=== PATIENT | female | born 1990 | race Caucasian/White ===

== ENCOUNTER → 2019-12-31 | Outpatient (CLI) | payer OTHER ==
--- NOTE | 2019-12-31 13:36 | RADIOLOGY REPORT (SQ) ---
EXAM DESCRIPTION: CHEST 2 VIEWS COMPLETED DATE/TIME: 12/31/2019 11:25 am REASON FOR STUDY: NONSPEC REACTION TO GAMMA INTRFRN RESPNS W/O ACTV TUBRCLOSIS COMPARISON: None. EXAM PARAMETERS: NUMBER OF VIEWS: two views TECHNIQUE: Digital Frontal and Lateral radiographic views of the chest acquired. RADIATION DOSE: NA LIMITATIONS: none FINDINGS: LUNGS AND PLEURA: No opacities, masses or pneumothorax. No pleural effusion. MEDIASTINUM AND HILAR STRUCTURES: No masses or contour abnormalities. HEART AND VASCULAR STRUCTURES: Heart normal size. No evidence for failure. BONES: No acute findings. HARDWARE: None in the chest. OTHER: No other significant finding. IMPRESSION: No acute finding in the chest. There is no evidence of active or prior tuberculosis. TECHNICAL DOCUMENTATION: JOB ID: [id number] 2010 [employer]- All Rights Reserved Reading location - IP/workstation name: [email or web address]
== END ==
LOC: RAD 11:03
PROVIDERS: ATTEND Family Medicine
DX: R76.11 Nonspecific reaction to tuberculin skin test without active tuberculosis (principal)
CPT/HCPCS: 71046

== ENCOUNTER 2020-08-10 17:56 | Emergency (ER) | payer SELFPAY ==
--- NOTE | 2020-08-10 18:50 | EKG REPORT ---
SEVERITY:- BORDERLINE ECG - SINUS RHYTHM PROBABLE LEFT ATRIAL ABNORMALITY : Confirmed by: Tank Bob MD 10-Aug-2020 18:49:45
--- NOTE | 2020-08-10 19:10 | ER Document Report ---
ED Medical Screen (RME) - General Chief Complaint: Chest Pain Stated Complaint: CHEST PAIN/DIZINESS Time Seen by Provider: 08/10/20 19:04 Mode of Arrival: Wheelchair Information source: Patient Notes: 30-year-old female presents to ED for chest pain that started on Monday with shortness of breath headache fatigue nausea and tinnitus. She states she did have a Covid test that was negative she got the results today. She states there is no change in smell or taste. She works at the [employer]. 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 She states she has 2 autoimmune disease factor Leiden syndrome and antiphospholipid syndrome. She states she does not smoke she occasionally drinks and does not use any illicit drugs. She is alert oriented respirations regular and unlabored speaking in full sentences. Her pulse is 93 O2 sat is 100%. Respirations are 22. I have greeted and performed a rapid initial assessment of this patient. A comprehensive ED assessment and evaluation of the patient, analysis of test results and completion of medical decision making process will be conducted by an additional ED providers. TRAVEL OUTSIDE OF THE [place] IN LAST 30 DAYS: No Physical Exam - Vital signs Vitals: Temp Pulse Resp BP Pulse Ox 98.1 F 103 H 22 H 136/87 H 100 08/10/20 18:07 08/10/20 18:07 08/10/20 18:07 08/10/20 18:07 08/10/20 18:07 Course - Vital Signs Vital signs: Temp Pulse Resp BP Pulse Ox 98.1 F 103 H 22 H 136/87 H 100 08/10/20 18:07 08/10/20 18:07 08/10/20 18:07 08/10/20 18:07 08/10/20 18:07
--- NOTE | 2020-08-10 19:30 | RADIOLOGY REPORT (SQ) ---
EXAM DESCRIPTION: CHEST 2 VIEWS IMAGES COMPLETED DATE/TIME: 08/10/2020 7:22 pm REASON FOR STUDY: Pain history of PE and DVTs COMPARISON: 12/31/2019 EXAM PARAMETERS: NUMBER OF VIEWS: two views TECHNIQUE: Digital Frontal and Lateral radiographic views of the chest acquired. RADIATION DOSE: NA LIMITATIONS: none FINDINGS: LUNGS AND PLEURA: No opacities, masses or pneumothorax. No pleural effusion. MEDIASTINUM AND HILAR STRUCTURES: No masses or contour abnormalities. HEART AND VASCULAR STRUCTURES: Heart normal size. No evidence for failure. BONES: No acute findings. HARDWARE: None in the chest. OTHER: No other significant finding. IMPRESSION: NO ACUTE RADIOGRAPHIC FINDING IN THE CHEST. TECHNICAL DOCUMENTATION: JOB ID: [id number] 2010 [employer]- All Rights Reserved Reading location - IP/workstation name: [email or web address]
[2020-08-10 19:36] LABS: ABSOLUTE EOSINOPHILS # (AUTO) 0.1 10^3/uL (0.0-0.6); ABSOLUTE LYMPHOCYTES (AUTO) 1.6 10^3/uL (0.5-4.7); ABSOLUTE MONOCYTES (AUTO) 0.6 10^3/uL (0.1-1.4); ABSOLUTE NEUT (AUTO) 6.5 10^3/uL (1.7-8.2); BASOPHILS % (AUTO) 0.4 % (0-2); EOSINOPHILS % (AUTO) 1.6 % (0-6); HEMATOCRIT 40.5 % (36.0-47.0); HEMOGLOBIN 14.5 g/dL (12.0-15.5); LYMPHOCYTES % (AUTO) 18.5 % (13-45); MEAN CORPUSCULAR HEMOGLOBIN 30.4 pg (27.0-33.4); MEAN CORPUSCULAR HGB CONC 35.9 g/dL (32.0-36.0); MEAN CORPUSCULAR VOLUME 85 fl (80-97); MONOCYTES % (AUTO) 6.6 % (3-13); PLATELET COUNT 317 10^3/uL (150-450); RED BLOOD COUNT 4.77 10^6/uL (3.72-5.28); RED CELL DISTRIBUTION WIDTH 12.7 % (11.5-14.0); SEGMENTED NEUTROPHILS % (AUTO) 72.9 % (42-78); TOTAL CELLS COUNTED % (AUTO) 100 %; WHITE BLOOD COUNT 8.9 10^3/uL (4.0-10.5)
[2020-08-10 19:56] LABS: ALBUMIN 4.8 g/dL (3.5-5.0); ALKALINE PHOSPHATASE 51 U/L (38-126); ANION GAP 11 (5-19); ASPARTATE AMINO TRANSFERASE 22 U/L (14-36); BILIRUBIN,DIRECT 0.2 mg/dL (0.0-0.4); BILIRUBIN,TOTAL 0.8 mg/dL (0.2-1.3); BLOOD UREA NITROGEN 10 mg/dL (7-20); CALCIUM 10.2 mg/dL (8.4-10.2); CARBON DIOXIDE 25 mmol/L (22-30); CHLORIDE 104 mmol/L (98-107); GLUCOSE 94 mg/dL (75-110); POTASSIUM 4.2 mmol/L (3.6-5.0)
--- NOTE | 2020-08-10 23:00 | RADIOLOGY REPORT (SQ) ---
CLINICAL INDICATION: Pain history of PE and DVTs. . TECHNIQUE: CT arteriography was obtained of the chest with multiplanar MIP and/or 3-D angiographic reconstructions. This exam was performed according to our departmental dose-optimization program, which includes automated exposure control, adjustment of the mA and/or kV according to patient size and/or use of iterative reconstruction techniques. COMPARISON: None. CORRELATION: None. FINDINGS: Adequate contrast bolus. Average Hounsfield unit measurement within main pulmonary artery segment of 404. Artifact from venous opacification. There is no evidence of pulmonary embolus. Thoracic aorta is of normal caliber. Aberrant right subclavian artery The heart is of normal size. No pericardial effusion. No bulky mediastinal adenopathy. The lungs are grossly clear. No consolidation or edema. No effusion or pneumothorax. Visualized abdominal contents are unremarkable. Visualized bones are unremarkable. IMPRESSION: No evidence of pulmonary embolus. Lungs are grossly clear .
[2020-08-11] MEDS ORDERED: LORAZEPAM 1 MG TABLET PO ONE (03:28)
--- NOTE | 2020-08-11 03:34 | ER Document Report ---
ED Cardiac - General Chief Complaint: Shortness Of Breath Stated Complaint: CHEST PAIN/DIZINESS Time Seen by Provider: 08/10/20 19:04 Mode of Arrival: Wheelchair Notes: CHIEF COMPLAINT: Chest pain for months, shortness of breath for 4 days HPI: 30-year-old female presenting to the emergency department complaining of intermittent chest pain for many months. States she gets a sharp stabbing of the left chest. Comes and goes. Patient states that 4 days ago she began feeling not well at work, flulike symptoms like cough shortness of breath. States with her chest discomfort she does not normally have shortness of breath. Patient has not had a fever. Patient states they did increase her Wellbutrin on Monday as well. Patient also has Vistaril for PTSD but did not take any recently. ROS: See HPI - all other systems were reviewed and are otherwise negative Constitutional: no fever Eyes: no drainage, no blurred vision ENT: no runny nose, no sore throat Cardiovascular: + chest pain Resp: + SOB, no cough GI: no vomiting, no diarrhea, no abdominal pain : no dysuria Integumentary: no rash Allergy: no hives Musculoskeletal: no extremity pain or swelling Neurological: no numbness/tingling, no weakness MEDICATIONS: I agree with the patient medications as charted by the RN. ALLERGIES: I agree with the allergies as charted by the RN. PAST MEDICAL HISTORY/PAST SURGICAL HISTORY: Reviewed and agree as charted by RN. SOCIAL HISTORY: Reviewed and agree as charted by RN. FAMILY HISTORY: No significant familial comorbid conditions directly related to patient complaint EXAM: Reviewed vital signs as charted by RN. CONSTITUTIONAL: Alert and oriented and responds appropriately to questions. Well-appearing; well-nourished HEAD: Normocephalic; atraumatic EYES: PERRL; Conjunctivae clear, sclerae non-icteric ENT: normal nose; no rhinorrhea; moist mucous membranes; pharynx without lesions noted, no uvula edema or deviation, no tonsillar hypertrophy, phonation normal NECK: Supple without meningismus; non-tender; no cervical lymphadenopathy, no masses CARD: RRR; no murmurs, no clicks, no rubs, no gallops; symmetric distal pulses RESP: Normal chest excursion without splinting or tachypnea; breath sounds clear and equal bilaterally; no wheezes, no rhonchi, no rales, pulse oximetry 98% on room air not hypoxic. Patient does not become dyspneic with speaking ABD/GI: Normal bowel sounds; non-distended; soft, non-tender, no rebound, no guarding; no palpable organomegaly or masses. BACK: The back appears normal and is non-tender to palpation, there is no CVA tenderness EXT: Normal ROM in all joints; non-tender to palpation; no cyanosis, no effusions, no edema SKIN: Normal color for age and race; warm; dry; good turgor; no acute lesions noted NEURO: Moves all extremities equally; Motor and sensory function intact PSYCH: The patient's mood and manner are tearful and anxious. Grooming and personal hygiene are appropriate. MDM: 30-year-old female with history of PTSD with chest pain for months, supposed to take Vistaril but did not. She is very tearful and anxious. Patient with shortness of breath for several days states she had flulike symptoms 4 days ago. Patient has history of factor V Leiden, chest CT was ordered via triage process and is completely negative. Her screening labs are also completely negative. Patient's EKG sinus rhythm with a ventricular rate of 98, MO 144, QT 344, QTc 440. Interpreted by emergency department physicians. Normal EKG. Low suspicion for ACS at this time, this is likely anxiety given her reaction we were discussing her findings. She became very tearful and anxious. We will give her a dose of Ativan here she has a friend to bring her home. Will refer to cardiology for outpatient evaluation TRAVEL OUTSIDE OF THE [place] IN LAST 30 DAYS: No Past Medical History - General Information source: Patient - Social History Smoking Status: Never Smoker Chew tobacco use (# tins/day): No Frequency of alcohol use: None Drug Abuse: None Family History: Reviewed & Not Pertinent Physical Exam - Vital signs Vitals: Temp Pulse Resp BP Pulse Ox 98.1 F 103 H 22 H 136/87 H 100 08/10/20 18:07 08/10/20 18:07 08/10/20 18:07 08/10/20 18:07 08/10/20 18:07 Course - Vital Signs Vital signs: Temp Pulse Resp BP Pulse Ox 98.1 F 80 20 112/78 100 08/10/20 18:07 08/10/20 19:11 08/10/20 19:11 08/10/20 19:11 08/10/20 19:11 - Laboratory Result Diagrams: 08/10/20 19:19 08/10/20 19:19 Discharge - Discharge Clinical Impression: Chest pain Qualifiers: Chest pain type: other chest pain Qualified Code(s): R07.89 - Other chest pain; R07.8 - Other chest pain Dyspnea Qualifiers: Dyspnea type: unspecified Qualified Code(s): R06.00 - Dyspnea, unspecified Condition: Stable Disposition: HOME, SELF-CARE Additional Instructions: Continue to take your Vistaril for anxiety. Follow-up with your primary care provider for reevaluation of your symptoms call for appointment tomorrow. Follow-up as well with cardiology for outpatient evaluation of your chest pain as this seems to be an ongoing issue. Your CT imaging today did not show evidence of a blood clot or pneumonia. Your lab work including cardiac labs did not show acute emergent abnormalities Referrals: ALEX WATSON MD [ACTIVE PROVISIONAL STAFF] - Follow up as needed
[2020-08-11 04:05] VITALS: BP 126/87
--- NOTE | 2020-08-11 10:08 | EKG REPORT ---
SEVERITY:- NORMAL ECG - SINUS RHYTHM : Confirmed by: Tank Bob MD 11-Aug-2020 10:07:36
== END 2020-08-11 04:00 | disposition home or self-care (01) ==
LOC: ER 17:56
DX: R07.89 Other chest pain (principal); R06.00 Dyspnea, unspecified; R06.02 Shortness of breath; R07.9 Chest pain, unspecified; R05 Cough; F41.9 Anxiety disorder, unspecified; D68.51 Activated protein C resistance; Z79.899 Other long term (current) drug therapy
CPT/HCPCS: 36415; 71046; 71275; 80053; 83735; 84484; 84703; 85025; 93005; 93010; 99285